=== PATIENT | male | born 1975 | race Caucasian/White ===

== ENCOUNTER 2021-01-20 20:56 | Emergency (ER) | payer MEDICAID ==
[2021-01-20] MEDS ORDERED: SODIUM CHLORIDE 0.9% 1,000 ML IV ONE (21:15)
[2021-01-20] MEDS ORDERED: METOCLOPRAMIDE HCL 5MG/ml INJ 2ml VIAL IV ONE (21:15)
[2021-01-20] MEDS ORDERED: ACETAMINOPHEN 325 MG TAB PO ONE (21:15)
[2021-01-20] MEDS ORDERED: AMOXICILLIN/CLAVUL 875 MG TAB PO ONE (21:15)
[2021-01-20 21:47] LABS: Basophils # (auto) 0.1 10 ^3/uL (0-0.2); Eosinophils # (auto) 0.2 10 ^3/uL (0-0.8); Hematocrit 47.8 % (41.0-53.0); Mean Corpuscular Hemoglobin 35.6 pg (28.0-32.0); Nucleated Red Blood Cells % 0.1 %
[2021-01-20 21:49] LABS: Basophils % (auto) 0.7 % (0.0-2.0); Eosinophils % (auto) 1.5 % (0.0-7.0); Hemoglobin 16.6 g/dL (13.5-17.5); Lymphocytes # (auto) 4.4 10 ^3/uL (0.4-5.4); Lymphocytes % (auto) 42.9 % (10.0-50.0); Mean Corpuscular Hgb Conc. 34.8 g/dL (32.0-36.0); Mean Corpuscular Volume 102.3 fL (80.0-100.0); Monocytes % (auto) 9.4 % (0.0-12.0); Neutrophils # (auto) 4.7 10 ^3/uL (1.6-8.6); Neutrophils % (auto) 45.5 % (37.0-80.0); Red Blood Cells 4.67 10^6/uL (4.5-5.90); Red Cell Distribution Width 14.3 % (11.8-14.3); White Blood Cell 10.3 10^3/uL (4.4-10.8)
[2021-01-20 22:06] LABS: Calcium 8.5 mg/dL (8.5-10.1); Potassium 3.7 mmol/L (3.5-5.1)
[2021-01-20 22:12] LABS: BUN/Creatinine Ratio 8.4; Bilirubin, Total 0.3 mg/dL (0.2-1.0); Total Protein 8.5 g/dL (6.4-8.2)
== END 2021-01-21 00:01 | disposition home or self-care (01) ==
LOC: EDBD 20:56 → ER 21:09
DX: F10.920 Alcohol use, unspecified with intoxication, uncomplicated (principal); R51.9 Headache, unspecified; W50.3XXA Accidental bite by another person, initial encounter; Y93.89 Activity, other specified; Y92.89 Other specified places as the place of occurrence of the external cause; Y99.8 Other external cause status
CPT/HCPCS: 36415; 70450; 80053; 80320; 85025